=== PATIENT | female | born 1995 ===

== ENCOUNTER 2018-09-07 09:43 | Emergency (ER) | payer OTHER ==
[~2018-09-07] VITALS: Ht 170.2 cm; Wt 98.0 kg
== END 2018-09-07 16:12 | disposition home or self-care (01) ==
LOC: ER 09:43
DX: O26.891 Other specified pregnancy related conditions, first trimester (principal); L05.01 Pilonidal cyst with abscess; Z34.01 Encounter for supervision of normal first pregnancy, first trimester

== ENCOUNTER 2018-11-29 13:59 | Outpatient (CLI) | payer OTHER | END 2018-11-29 19:30 | disposition home or self-care (01) | LOC: OBS/DEL 13:59 | DX: O26.892 Other specified pregnancy related conditions, second trimester (principal); M54.5 Low back pain; Z34.02 Encounter for supervision of normal first pregnancy, second trimester ==

== ENCOUNTER 2019-03-04 01:11 | Outpatient (CLI) | payer OTHER | END 2019-03-04 14:16 | disposition home or self-care (01) | LOC: OBS/DEL 01:11 | DX: O26.893 Other specified pregnancy related conditions, third trimester (principal); R10.2 Pelvic and perineal pain; Z34.03 Encounter for supervision of normal first pregnancy, third trimester ==

== ENCOUNTER 2019-03-07 06:41 | Inpatient (IN) | payer OTHER ==
[~2019-03-07] VITALS: Ht 170.2 cm; Wt 3.2 kg
[2019-03-08] MEDS ORDERED: PROTONIX20 MG PO (09:43)
== END 2019-03-10 13:25 | disposition home or self-care (01) | DRG 788 ==
LOC: OB/GYN 06:41 → LDR 06:41 → OB/GYN 15:11
PROVIDERS: ADMIT Obstetrics & Gynecology
PROC: 4A0HXFZ Measurement of Products of Conception, Cardiac Rhythm, External Approach (ICD-10-PCS; 2019-03-07)
PROC: 10D00Z1 Extraction of Products of Conception, Low, Open Approach (ICD-10-PCS; principal; 2019-03-07 13:00)
DX: O82 Encounter for cesarean delivery without indication (principal); O32.1XX0 Maternal care for breech presentation, not applicable or unspecified; Z3A.39 39 weeks gestation of pregnancy; Z37.0 Single live birth